=== PATIENT | male | born 1980 | race African-American/Black ===

== ENCOUNTER 2016-10-20 16:40 | Emergency (ER) | payer SELFPAY | END 2016-10-20 20:40 | disposition home or self-care (01) | LOC: D.ER 16:40 | DX: M54.5 Low back pain (principal); M54.2 Cervicalgia; R07.89 Other chest pain; M25.561 Pain in right knee; V43.52XA Car driver injured in collision with other type car in traffic accident, initial encounter; Y93.89 Activity, other specified; Y92.410 Unspecified street and highway as the place of occurrence of the external cause ==